=== PATIENT | female | born 1990 | race Two or more races ===

== ENCOUNTER 2025-04-06 16:25 | Emergency (ER) | payer BC, SELFPAY ==
[2025-04-06 16:32] VITALS: BP 118/71; PULSE 93; RESP 18; TEMP 36.8; O2SAT 98
[2025-04-06 16:47] LABS: Collection Type, Urine Clean Catch
--- NOTE | 2025-04-06 17:24 | PD.EDRME ---
Rapid Medical Screening Exam RME Arrival date/time: 04/06/25 16:25 35-year-old female with no known medical history presents to the emergency room with a chief complaint of dysuria x 1 day I have greeted and performed a focused initial assessment of this patient. A comprehensive ED assessment and evaluation of the patient, analysis of all test results, and completion of the medical decision making process will be conducted by additional ED providers. Chief Complaint: General Adult/Misc Complain Time Seen by Provider: 04/06/25 16:28 Vital signs: Vital Signs Temperature 98.2 F 04/06/25 16:32 Pulse Rate 93 04/06/25 16:32 Respiratory Rate 18 04/06/25 16:32 Blood Pressure 118/71 04/06/25 16:32 Pulse Oximetry (%) 98 04/06/25 16:32 Oxygen Delivery Method Room Air 04/06/25 16:32 Vital signs reviewed by provider: Yes
[2025-04-06 18:00] LABS: Bilirubin,Urine Negative (Negative); Blood,Urine 3+ (Negative); Color,Urine Yellow (Lt Yel-Yel); Glucose, Urine Negative (Negative); Ketones,Urine Negative (Negative); Leukocyte Esterase,Urine Positive (Negative); Nitrite,Urine Negative (Negative); PH,Urine 6.0 (5.0-7.0); Protein,Urine 2+ (Neg - Trace); RBC,Urine 662 /hpf (0-3); Specific Gravity,Urine 1.028 (1.001-1.035); Squamous Epithelial Cell,Urine 4 /hpf (0-5); Transitional Epi Cells,Urine 2 /hpf (0-5); Urobilinogen,Urine Negative mg/dL (0.0-1.0); WBC,Urine 1151 /hpf (0-5)
[2025-04-06 18:24] LABS: Clarity,Urine Turbid (Clear/Hazy); Culture Indicated,Urine Yes
--- NOTE | 2025-04-06 19:12 | EDNOTE_ITS ---
ED Female Urogenital RME/HPI General Chief complaint: General Adult/Misc Complain Stated complaint: URGENCY/BURNING W/ URINATION Time Seen by Provider: 04/06/25 16:28 Arrival date/time: 04/06/25 16:25 This is a case of 35-year-old female who came into the emergency room due to painful urination for 1 day with urgency and increased frequency denies any abdominal pain flank pain back pain nausea vomiting fever chills denies blood in the urine denies Limitations: no limitations RME / HPI RME / HPI Narrative: 04/06/25 16:25 35-year-old female with no known medical history presents to the emergency room with a chief complaint of dysuria x 1 day I have greeted and performed a focused initial assessment of this patient. A comprehensive ED assessment and evaluation of the patient, analysis of all test results, and completion of the medical decision making process will be conducted by additional ED providers. Related Data Previous Rx's ?Medication ?Instructions ?Recorded lorazepam 1 mg tablet 1 mg PO Q8HR PRN AGITATION # 14 tabs 12/13/15 cefuroxime axetil 500 mg tablet 500 mg PO Q12H #20 tab s 04/06/25 phenazopyridine 200 mg tablet 200 mg PO TID 6 doses #6 tabs 04/06/25 (Pyridium) Allergies Allergy/AdvReac Type Severity Reaction Status Date / Time No Known Allergies Allergy Verified 04/06/25 16:28 Review of Systems Review of Systems Systems Reviewed: All systems reviewed, normal except as documented Constitutional Constitutional: Reports system reviewed and no additional complaints, except as documented and Reports as per HPI Cardiovascular Cardiovascular: Reports system reviewed and no additional complaints, except as documented and Reports as per HPI Respiratory Respiratory: Reports system reviewed and no additional complaints, except as documented and Reports as per HPI Gastrointestinal Gastrointestinal: Reports system reviewed and no additional complaints, except as documented and Reports as per HPI Genitourinary Genitourinary: Reports system reviewed and no additional complaints, except as documented and Reports as per HPI Neurologic Neurologic: Reports system reviewed and no additional complaints, except as documented and Reports as per HPI Past Medical History Social History SMOKING STATUS: Never smoker ED Exam General Limitations: Present no limitations General appearance: Present alert, in no apparent distress and other (Is awake alert oriented not in distress nontoxic looking well-hydrated well-nourished) Head Head exam: Present atraumatic, normocephalic and normal inspection Eye Eye exam: Present normal appearance, PERRL and EOMI ENT ENT exam: Present normal exam, normal oropharynx and mucous membranes moist Neck Neck exam: Present normal inspection, full ROM and trachea midline; Absent tenderness, meningismus, lymphadenopathy or thyromegaly Chest Chest inspection: Present normal inspection and symmetric chest wall rise; Absent tenderness Respiratory Respiratory exam: Present normal lung sounds bilaterally; Absent respiratory distress, wheezes, stridor, accessory muscle use or prolonged expiratory phase Cardiovascular Cardiovascular exam: Present regular rate, normal rhythm and normal heart sounds; Absent bradycardia, tachycardia, irregular rhythm, systolic murmur or diastolic murmur Abdominal Exam Abdominal exam: Present soft and normal bowel sounds; Absent distention, tenderness, guarding, rebound, rigidity, diminished bowel sounds, hyperactive bowel sounds, hypoactive bowel sounds, organomegaly, psoas sign, obturator sign, Fuentes's sign, Rovsing's sign, tenderness at McBurney's Point or hernia Extremities Exam Extremities exam: Present normal inspection and full ROM Back Exam Back exam: Present normal inspection and full ROM Neurological Exam Neurological exam: Present alert, oriented X3, CN II-XII intact, normal gait and reflexes normal; Absent motor sensory deficit Psychiatric Psychiatric exam: Present normal affect and normal mood Skin Skin exam: Present warm, dry, intact and normal color Course Quality Measures none Orders Category Date Time Status HCG Qualitative,Urine Stat Lab 04/06/25 17:32 Ordered UA, C/S IF [Urinalysis, C/S if Indicated] Stat Lab 04/06/25 16:37 Completed Urine Culture Stat Lab 04/06/25 16:37 Received cefTRIAXone [Rocephin] 1,000 mg Med 04/06/25 19:09 Ordered Lidocaine 1% 20 ml [Xylocaine 1% 20 ML] 2.1 ml IM X1 Vital Signs Vital signs: Vital Signs Temperature 98.2 F 04/06/25 16:32 Pulse Rate 93 04/06/25 16:32 Respiratory Rate 18 04/06/25 16:32 Blood Pressure 118/71 04/06/25 16:32 Pulse Oximetry (%) 98 04/06/25 16:32 Oxygen Delivery Method Room Air 04/06/25 16:32 Oxygen saturation is 98% in room air normal Urogenital - Female MDM Narrative MDM Narrative:: This is a case of 35-year-old female who came into the emergency room due to painful urination for 1 day with urgency and increased frequency denies any abdominal pain flank pain back pain nausea vomiting fever chills denies blood in the urine denies physical examination patient is awake alert oriented not in distress nontoxic looking well-hydrated well-nourished excellent skin turgor abdominal exam is benign nonsurgical no guarding no rebound no rigidity negative psoas negative straight and negative Rovsing's negative McBurney's negative Fuentes sign negative CVA tenderness bladder is not distended not tender excellent skin turgor no signs and symptoms of sepsis dehydration or acute abdomen urinalysis shows WBC and RBC in the urine suggestive of urinary tract infection patient was given ceftriaxone IM here in the emergency room and was discharged with cefuroxime for UTI and Pyridium patient will follow-up with PCP in 2 days for reevaluation and for any worsening symptoms or emergent concerns she will return to the emergency room immediately or call 911 Patient was discharged with comfortable condition walking with stable gait. Patient verbalized no further complains explained diagnosis and answered patient question. Patient is comfortable with the proposed management plan including the need to follow up with his/her primary care physician and any specialist if applicable Discussed patient for any urgent condition or worsening sx, He/She needed to go to emergency room immediately or call 911. Patient acknowledge the responsibility to follow up as instructed and to monitor her/his symptoms. For any persistence of the symptoms for more than 3-5 days return precaution advised. Discussed the result of the test and was given printed discharge instruction Patient data External records reviewed:: [facility] previous records Clinical information provided by:: patient Social determinants that could affect healthcare access:: none Patient has the following chronic illnesses:: None How is presenting disease/condition affected by chronic disease/condition?: no chronic disease Evaluation data The following diagnostics were reviewed and interpreted by me:: lab results Lab and/or radiology exams considered but not ordered:: Reviewed Interpretation Summary: Reviewed Medications / Prescriptions Medications or Prescriptions considered but not ordered:: Given Medication administrations:: Medication Administration History Ceftriaxone Sodium 1,000 mg/ (Lidocaine HCl 2.1 ml) 0 mg IM X1 ONE Stop: 04/06/25 19:10 Given Consultations Consultation(s) initiated? (list below): No Diagnosis Urogenital Female Differential Diagnosis: urinary tract infection Most likely diagnosis given after review of the tests above:: Urinary tract infection Admission Indicated Admission indicated?: not indicated Explain why admission is indicated or not indicated:: Not indicated Admission Request Was there a request for admission?: No Admission Attestation Admission request attestation: Not indicated Disposition Plan Disposition Plan: Discharge Discharge Attestation Discharge Attestation: The patient and all family members were given an opportunity to ask questions and understood the discharge instructions. Discharge instructions specifically effects, indications for sooner follow up or return to the emergency department, and the expected course of current diagnosis. Patient condition: Stable Discharge Plan Plan Patient Disposition: HOME (Self Care) Patient condition on transfer: Stable Prescriptions/Referrals Prescriptions/Med Rec: New cefuroxime axetil 500 mg tablet 500 mg PO Q12H Qty: 20 0RF phenazopyridine [Pyridium] 200 mg tablet 200 mg PO TID 0 Days Qty: 6 0RF No Action lorazepam 1 MG tablet 1 mg PO Q8HR PRN (Reason: AGITATION) Qty: 14 0RF Referrals: Liss Robles PA-C [Primary Care Provider] - In 1 week Problem List Clinical Impression: Urinary tract infection Patient/Caregiver Discharge Instructions Education Materials: Urinary Tract Infections in Women Additional Instructions: Follow-up with your primary care physician in 2 days for reevaluation worsening symptoms or any emergent concern call 911 or go to the nearest emergency room take your medication as directed finish the course of antibiotic keep hydrated Pedialyte Gatorade and cranberry juice is advised Print Language: Amharic Stand Alone Forms: Gail Award Info., Patient Portal Info Letter SHANNAN/ANDREW Supervising Physician SAMIA Supervising Physician: Dr. Louis
== END 2025-04-06 19:25 | disposition home or self-care (01) ==
PROVIDERS: Nurse Practitioner Family; Emergency Provider Emergency Medicine; PCP Specialist
DX: N39.0 Urinary tract infection, site not specified (principal)
CPT/HCPCS: 81001; 81025; 87077; 87086; 87186; 99283